=== PATIENT | female | born 1990 | race Caucasian/White ===

== ENCOUNTER 2023-05-03 13:58 | Inpatient (IN) | payer BC ==
[2023-05-03] MEDS ORDERED: Sodium Chloride 0.9% 20 ML SDV IV PRN (14:35)
[2023-05-03] MEDS ORDERED: Butorphanol 1 MG/ML SDV IVPUSH PRN (14:35)
[2023-05-03] MEDS ORDERED: Tranexamic Acid IN NACL,ISO-OS 1,000 MG in Premix Bag 1 BAG IV PRN ×2 (14:35)
[2023-05-03] MEDS ORDERED: Water For Irrigation,Sterile 1,000 ML Container IRR PRN (14:35)
[2023-05-03] MEDS ORDERED: Methylergonovine 0.2 MG/1 ML Amp IM PRN (14:35)
[2023-05-03] MEDS ORDERED: Lidocaine 1% 50 ML MDV INJECT PRN (14:35)
[2023-05-03] MEDS ORDERED: Misoprostol 25 MCG (1/4 of 100 MCG) Tab VAG PRN ×2 (14:35)
[2023-05-03] MEDS ORDERED: Misoprostol 200 MCG Tab PO PRN (14:35)
[2023-05-03] MEDS ORDERED: Sodium Chloride 0.9% 2.5 ML Syringe FLUSH PRN (14:35)
[2023-05-03] MEDS ORDERED: Carboprost Tromethamine 250 MCG/1 mL Vial IM PRN (14:35)
[2023-05-03] MEDS ORDERED: Sodium Chloride 0.9% 10 ML Syringe FLUSH PRN (14:35)
[2023-05-03] MEDS ORDERED: Terbutaline 1 MG/ML SDV SUBCUT PRN (14:35)
[2023-05-03] MEDS ORDERED: Oxytocin/0.9 % Sodium Chloride 30 UNIT/500 ML BAG IV SCH ×2 (14:45)
[2023-05-03] MEDS: Lactated Ringers 1,000 ML IV SCH ×2 (14:55→23:46)
[2023-05-03] MEDS ORDERED: Ampicillin 2 GM in Sodium Chloride 0.9% 100 ML IV ONE (15:00)
[2023-05-03 15:55] LABS: HEMATOCRIT 33.9 % (36.0-46.0); HEMOGLOBIN 11.7 g/dL (12.0-16.0); MEAN CORPUSCULAR HEMOGLOBIN 30.3 pg (27.0-32.0); MEAN CORPUSCULAR HGB CONC 34.5 g/dL (31.0-37.0); MEAN CORPUSCULAR VOLUME 87.8 fL (80.0-98.0); MEAN PLATELET VOLUME 12.7 fL (7.40-12.00); RED BLOOD CELL COUNT 3.86 M/uL (4.30-5.90); WHITE BLOOD CELL COUNT,WBC 9.35 K/uL (4.0-11.0)
[2023-05-03] MEDS: Ampicillin 1 GM in Sodium Chloride 0.9% 50 ML IV SCH ×2 (19:27→23:47)
[2023-05-03] MEDS ORDERED: ePHEDrine 50 MG/ML SDV IVPUSH PRN ×2 (22:34)
[2023-05-03] MEDS ORDERED: Ropivacaine HCl/PF 400 MG in Premix Bag 1 BAG EPIDUR SCH (22:45)
[2023-05-03] MEDS ORDERED: Dexmedetomidine 200 MCG/2 ML SDV ONE (23:11)
[2023-05-04] MEDS ORDERED: fentaNYL 100 MCG/2 ML SDV ONE ×2 (00:20→17:27)
[2023-05-04] MEDS ORDERED: Lidocaine 2% with EPINEPHrine 1:200,000 20 ML SDV ONE (00:20)
[2023-05-04] MEDS: Phenylephrine HCl 0.5 MG/5 ML AMP IVPUSH PRN ×2 (00:40→01:47)
[2023-05-04] MEDS: Lactated Ringers 1,000 ML IV SCH ×3 (01:00→11:14)
[2023-05-04] MEDS: Ampicillin 1 GM in Sodium Chloride 0.9% 50 ML IV SCH ×4 (03:48→15:50)
[2023-05-04] MEDS ORDERED: Ondansetron 4 MG/2 ML SDV IVPUSH PRN ×4 (09:53→18:51)
[2023-05-04] MEDS ORDERED: Morphine PF 10 MG/10 ML SDV ONE (17:27)
[2023-05-04] MEDS ORDERED: Oxytocin 10 Units/1 ML SDV ONE (17:27)
[2023-05-04] MEDS ORDERED: ceFAZolin 1 GM Vial ONE (17:27)
[2023-05-04] MEDS ORDERED: Ketorolac 30 MG/ML SDV ONE (17:27)
[2023-05-04] MEDS ORDERED: Dexamethasone 4 MG/ML 5 ML MDV ONE (17:27)
[2023-05-04] MEDS ORDERED: Ondansetron 4 MG/2 ML SDV ONE (17:27)
[2023-05-04] MEDS ORDERED: Phenylephrine 1% 10 MG/ML SDV ONE (17:27)
[2023-05-04] MEDS ORDERED: Azithromycin 500 MG in Sodium Chloride 0.9% 250 ML IV ONE (17:29)
[2023-05-04] MEDS ORDERED: Ropivacaine 0.5% 5 MG/ML 30 ML SDV ONE (17:36)
[2023-05-04] MEDS ORDERED: Vasopressin 20 Units/1 ML MDV ONE ×2 (17:49→17:50)
[2023-05-04] MEDS ORDERED: Dexmedetomidine 200 MCG/2 ML SDV ONE (17:53)
[2023-05-04] MEDS ORDERED: Metoclopramide 10 MG/2 ML SDV ONE (17:54)
[2023-05-04] MEDS ORDERED: Midazolam 1 MG/ML 2 ML SDV ONE (18:01)
[2023-05-04] MEDS ORDERED: droPERidol 5 MG/2 ML SDV ONE (18:09)
[2023-05-04] MEDS ORDERED: Morphine 2 MG/ML SYRINGE IVPUSH PRN (18:16)
[2023-05-04] MEDS ORDERED: Naloxone 0.4 MG/ML SDV IVPUSH PRN (18:16)
[2023-05-04] MEDS ORDERED: fentaNYL 100 MCG/2 ML SDV IVPUSH PRN (18:16)
[2023-05-04] MEDS ORDERED: Metoclopramide 10 MG/2 ML SDV IVPUSH PRN (18:16)
[2023-05-04] MEDS ORDERED: ePHEDrine 50 MG/ML SDV IVPUSH PRN (18:16)
[2023-05-04] MEDS ORDERED: HYDROmorphone 1 MG/ML Syringe IVPUSH PRN (18:16)
[2023-05-04] MEDS ORDERED: Albuterol 0.083% 2.5 MG/3 ML Neb Soln NEB PRN (18:16)
[2023-05-04] MEDS ORDERED: droPERidol 5 MG/2 ML SDV IVPUSH PRN (18:16)
[2023-05-04] MEDS ORDERED: diphenhydrAMINE 50 MG/ML SDV IVPUSH PRN ×2 (18:16→18:51)
[2023-05-04] MEDS ORDERED: fentaNYL 50 MCG/ML SDV IVPUSH PRN (18:16)
[2023-05-04] MEDS ORDERED: Acetaminophen/oxyCODONE 325-5 MG Tab PO PRN ×3 (18:16→18:51)
[2023-05-04] MEDS ORDERED: Phenylephrine HCl 0.5 MG/5 ML AMP ONE (18:31)
[2023-05-04] MEDS ORDERED: Tranexamic Acid 1,000 MG/10 ML Vial ONE (18:49)
[2023-05-04] MEDS ORDERED: Methylergonovine 0.2 MG/1 ML Amp IM PRN (18:51)
[2023-05-04] MEDS ORDERED: Bisacodyl 10 MG Supp RECTAL PRN (18:51)
[2023-05-04] MEDS ORDERED: Lanolin 100% Cream 7 GM Tube TOP PRN (18:51)
[2023-05-04] MEDS ORDERED: Misoprostol 200 MCG Tab RECTAL PRN (18:51)
[2023-05-04] MEDS ORDERED: Oxytocin 10 Units/1 ML SDV IM PRN (18:51)
[2023-05-04 18:57] LABS: PH,UMBILICAL ARTERIAL 7.145 (7.18-7.38); PH,UMBILICAL VENOUS 7.181 (7.25-7.45)
[2023-05-04] MEDS ORDERED: Lactated Ringers 1,000 ML IV SCH (19:00)
[2023-05-04] MEDS ORDERED: Oxytocin/0.9 % Sodium Chloride 30 UNIT/500 ML BAG IV SCH (19:00)
[2023-05-04] MEDS ORDERED: Acetaminophen 1,000 MG in Premix Bag 1 BAG IV ONE (20:48)
[2023-05-04] MEDS: Ketorolac 30 MG/ML SDV IVPUSH SCH (23:55)
[2023-05-05 05:56] LABS: HEMATOCRIT 30.3 % (36.0-46.0); HEMOGLOBIN 10.5 g/dL (12.0-16.0)
[2023-05-05] MEDS: Ketorolac 30 MG/ML SDV IVPUSH SCH ×3 (05:59→18:51)
[2023-05-05] MEDS: Docusate Sodium 100 MG Cap PO SCH ×2 (09:30→20:06)
[2023-05-06] MEDS ORDERED: Ibuprofen 800 MG Tab PO PRN (00:01)
[2023-05-06] MEDS: Docusate Sodium 100 MG Cap PO SCH ×3 (08:44→09:02)
== END 2023-05-06 12:50 | disposition home or self-care (01) | DRG 540 ==
LOC: MW.OBCHECK 13:58 → MW.OB 14:03 → MW.OBCHECK 14:34 → MW.OB 14:35 → OBSVTOIN 05-04 17:56 → MW.OB 05-04 21:30
PROVIDERS: ADMIT Obstetrics & Gynecology; ATTEND Obstetrics & Gynecology
PROC: 10D00Z1 Extraction of Products of Conception, Low, Open Approach (ICD-10-PCS; principal; 2023-05-04)
DX: O42.02 Full-term premature rupture of membranes, onset of labor within 24 hours of rupture (principal); O99.824 Streptococcus B carrier state complicating childbirth; O76 Abnormality in fetal heart rate and rhythm complicating labor and delivery; O34.13 Maternal care for benign tumor of corpus uteri, third trimester; O62.1 Secondary uterine inertia; D25.9 Leiomyoma of uterus, unspecified; O99.02 Anemia complicating childbirth; D64.9 Anemia, unspecified; Z37.0 Single live birth; Z3A.39 39 weeks gestation of pregnancy
CPT/HCPCS: 36415; 51702; 82803; 85014; 85018; 85027; 86592; 86850; 86900; 86901; 86920; A9270-GY; J0131; J0290; J0690; J1100; J1790; J1885; J2250; J2274; J2370; J2405; J2590; J2765; J2795; J3010; J3105; J3490; J7120

== ENCOUNTER 2023-08-13 06:38 | Inpatient (IN) | payer BC ==
[2023-08-13] MEDS ORDERED: Lactated Ringers 1,000 ML IV SCH (06:45)
[2023-08-13 07:09] LABS: HEMATOCRIT 36.2 % (37.0-47.0); HEMOGLOBIN 12.7 g/dL (12.0-16.0); MEAN CORPUSCULAR HEMOGLOBIN 29.7 pg (28.0-32.0); MEAN CORPUSCULAR HGB CONC 35.1 g/dL (32.0-36.0); MEAN CORPUSCULAR VOLUME 84.8 fL (83.0-99.0); MEAN PLATELET VOLUME 10.2 fL (9.4-12.3); PLATELET COUNT,PLT 254 K/uL (150-400); RED BLOOD CELL COUNT 4.27 M/uL (4.10-5.30); WHITE BLOOD CELL COUNT,WBC 5.35 K/uL (3.9-11.3)
[2023-08-13] MEDS ORDERED: Morphine 2 MG/ML SYRINGE IVPUSH PRN (07:23)
[2023-08-13] MEDS ORDERED: Metoclopramide 10 MG/2 ML SDV IVPUSH PRN (07:23)
[2023-08-13] MEDS ORDERED: Naloxone 0.4 MG/ML SDV IVPUSH PRN (07:23)
[2023-08-13] MEDS ORDERED: Ondansetron 4 MG/2 ML SDV IVPUSH PRN ×2 (07:23→11:11)
[2023-08-13] MEDS ORDERED: Albuterol 0.083% 2.5 MG/3 ML Neb Soln NEB PRN (07:23)
[2023-08-13] MEDS ORDERED: fentaNYL 50 MCG/ML SDV IVPUSH PRN (07:23)
[2023-08-13] MEDS ORDERED: droPERidol 5 MG/2 ML SDV IVPUSH PRN (07:23)
[2023-08-13] MEDS ORDERED: HYDROmorphone 1 MG/ML Syringe IVPUSH PRN (07:23)
[2023-08-13] MEDS ORDERED: propofoL 50 ML ONE (07:25)
[2023-08-13] MEDS ORDERED: Ropivacaine 0.5% 5 MG/ML 30 ML SDV ONE (07:26)
[2023-08-13] MEDS ORDERED: Rocuronium Bromide 50 MG/5 ML Syringe ONE (07:29)
[2023-08-13] MEDS ORDERED: Propofol 200 MG/20 ML SDV ONE ×3 (07:29→09:41)
[2023-08-13] MEDS ORDERED: dexmedeTOMIDine HCl 200 MCG/2 ML SDV ONE (07:29)
[2023-08-13] MEDS ORDERED: fentaNYL 100 MCG/2 ML SDV ONE ×2 (07:29→09:02)
[2023-08-13 07:32] LABS: CALCIUM 8.8 mg/dL (8.5-10.1); CARBON DIOXIDE,CO2 24.8 mmol/L (21.0-32.0); CREATININE 0.8 mg/dL (0.6-1.0); EST CRCL DRUG DOSING (CG) 83.51 mL/min; POTASSIUM,K 4.2 mmol/L (3.5-5.1)
[2023-08-13] MEDS ORDERED: Vasopressin 20 Units/1 ML MDV ONE (07:35)
[2023-08-13] MEDS ORDERED: Magnesium Sulfate (4.06 MEQ/ML) 5 GM/10 ML SDV ONE (08:09)
[2023-08-13] MEDS ORDERED: ceFAZolin 2 GM Vial ONE (08:12)
[2023-08-13] MEDS ORDERED: Ondansetron 4 MG/2 ML SDV ONE (08:23)
[2023-08-13] MEDS ORDERED: Dexamethasone 4 MG/ML 5 ML MDV ONE (08:23)
[2023-08-13] MEDS ORDERED: Methylene Blue 1% 100MG/10 ML SDV ONE (08:27)
[2023-08-13] MEDS ORDERED: Glycopyrrolate 0.2 MG/ML SDV ONE ×2 (08:42)
[2023-08-13] MEDS ORDERED: Ketorolac 30 MG/ML SDV ONE (08:54)
[2023-08-13] MEDS ORDERED: Tranexamic Acid 1,000 MG/10 ML Vial ONE ×2 (08:55→09:31)
[2023-08-13] MEDS ORDERED: HYDROmorphone 2 MG/ML Syringe IVPUSH PRN (11:11)
[2023-08-13] MEDS ORDERED: Promethazine 25 MG/ML SDV IM PRN (11:11)
[2023-08-13] MEDS ORDERED: Sodium Chloride 0.9% 1,000 ML IV SCH (11:15)
[2023-08-13] MEDS ORDERED: Benzocaine/Cetylpyridinium/Menthol Lozenge MUCMEM PRN (13:03)
[2023-08-13] MEDS: Acetaminophen 325 MG Tab PO PRN ×2 (13:37→19:33)
[2023-08-13] MEDS: oxyCODONE 5 MG Tab PO PRN ×2 (16:31→20:55)
[2023-08-14] MEDS: Acetaminophen 325 MG Tab PO PRN ×2 (01:15→06:07)
[2023-08-14] MEDS: oxyCODONE 5 MG Tab PO PRN ×2 (01:17→06:10)
[2023-08-14 06:23] LABS: BASOPHILS ABSOLUTE AUTO 0.04 K/uL (0.00-0.20); BASOPHILS PERCENT AUTO 0.3 % (0.0-1.0); EOSINOPHILS ABSOLUTE AUTO 0.05 K/uL (0.00-0.45); EOSINOPHILS PERCENT AUTO 0.4 % (0.0-6.0); HEMATOCRIT 34.6 % (37.0-47.0); HEMOGLOBIN 11.8 g/dL (12.0-16.0); IMMATURE GRAN ABSOLUTE AUTO 0.05 K/uL (0.00-0.05); IMMATURE GRAN PERCENT AUTO 0.4 % (0.0-0.4); LYMPHOCYTES ABSOLUTE AUTO 2.74 K/uL (1.00-4.80); LYMPHOCYTES PERCENT AUTO 21.3 % (24.0-44.0); MEAN CORPUSCULAR HEMOGLOBIN 29.4 pg (28.0-32.0); MEAN CORPUSCULAR HGB CONC 34.1 g/dL (32.0-36.0); MEAN CORPUSCULAR VOLUME 86.1 fL (83.0-99.0); MEAN PLATELET VOLUME 10.4 fL (9.4-12.3); MONOCYTES ABSOLUTE AUTO 1.21 K/uL (0.00-0.80); MONOCYTES PERCENT AUTO 9.4 % (0.0-8.0); NEUTROPHILS ABSOLUTE AUTO 8.76 K/uL (1.80-7.70); NEUTROPHILS PERCENT AUTO 68.2 % (41.0-71.0); PLATELET COUNT,PLT 271 K/uL (150-400); RED BLOOD CELL COUNT 4.02 M/uL (4.10-5.30); WHITE BLOOD CELL COUNT,WBC 12.85 K/uL (3.9-11.3)
[2023-08-14] MEDS ORDERED: Ketorolac 30 MG/ML SDV IVPUSH ONE ×2 (06:23→09:00)
[2023-08-14 06:45] LABS: CALCIUM 8.9 mg/dL (8.5-10.1); CARBON DIOXIDE,CO2 27.8 mmol/L (21.0-32.0); CREATININE 0.9 mg/dL (0.6-1.0); EST CRCL DRUG DOSING (CG) 74.23 mL/min; POTASSIUM,K 4.1 mmol/L (3.5-5.1)
== END 2023-08-14 09:25 | disposition home or self-care (01) | DRG 519 ==
LOC: MW.SDS 06:38 → MW.OB 11:55
PROVIDERS: ADMIT Obstetrics & Gynecology; ATTEND Obstetrics & Gynecology
PROC: 0UPD0HZ Removal of Contraceptive Device from Uterus and Cervix, Open Approach (ICD-10-PCS; 2023-08-13)
PROC: 0UB90ZZ Excision of Uterus, Open Approach (ICD-10-PCS; principal; 2023-08-13 08:00)
DX: D25.9 Leiomyoma of uterus, unspecified (principal); Z98.890 Other specified postprocedural states; Z79.899 Other long term (current) drug therapy
CPT/HCPCS: 00840; 36415; 64488; 80048; 84703; 85025; 85027; 86850; 86900; 86901; A9270-GY; J0131; J0690; J1100; J1885; J2405; J2704; J2795; J3010; J3475; J3490; J7120; Q9968